=== PATIENT | female | born 1965 ===

== ENCOUNTER 2019-12-24 15:24 | Emergency (ER) | payer MEDICAID ==
[2019-12-24 15:58] LABS: CHLORIDE,CL 102 mmol/L (98-107); SODIUM,NA 139 mmol/L (136-145)
--- NOTE | 2019-12-24 16:09 | EDM.PDOC ---
ED HPI GENERAL MEDICAL PROBLEM - General Chief Complaint: Chest Pain Stated Complaint: CHEST PAIN Time Seen by Provider: 12/24/19 15:26 Source of Information: Reports: Patient History Limitations: Reports: Language Barrier - History of Present Illness INITIAL COMMENTS - FREE TEXT/NARRATIVE: Pt with pressure in chest Began yesterday after running No SOB No fever No cough Pt states doesnt feel right Just started Metformin 2 days ago Had been on it previously and was stopped due to side effects Side effects were similar to this Has been on different oral agent and was tolerating it Onset: Gradual Duration: Day(s):, Intermittent Location: Reports: Chest, Generalized Severity: Mild - Related Data Allergies Allergy/AdvReac Type Severity Reaction Status Date / Time Penicillins Allergy Severe Facial Verified 12/24/19 15:29 Swelling Home Meds: Home Meds Omeprazole Magnesium [Prilosec Otc] 20 mg PO DAILY PRN 12/24/19 [History] atenoloL [Atenolol] 25 mg PO DAILY@1200 12/24/19 [History] metFORMIN HCl [Metformin HCl] 500 mg PO DAILY@1130 12/24/19 [History] Social & Family History - Tobacco Use Smoking Status *Q: Never Smoker Second Hand Smoke Exposure: No - Caffeine Use Caffeine Use: Reports: Tea - Recreational Drug Use Recreational Drug Use: No ED ROS GENERAL - Review of Systems Review Of Systems: See Below HEENT: Reports: No Symptoms Respiratory: Reports: No Symptoms Cardiovascular: Reports: Chest Pain GI/Abdominal: Reports: Abdominal Pain : Reports: No Symptoms Musculoskeletal: Reports: No Symptoms Skin: Reports: No Symptoms Neurological: Reports: No Symptoms Psychiatric: Reports: No Symptoms ED EXAM, GENERAL - Physical Exam Exam: See Below Exam Limited By: No Limitations General Appearance: No Apparent Distress Throat/Mouth: Normal Inspection Neck: Supple Respiratory/Chest: Lungs Clear Cardiovascular: Regular Rate, Rhythm GI/Abdominal: Soft, Non-Tender Extremities: Normal Inspection Neurological: Alert, Oriented, No Motor/Sensory Deficits Psychiatric: Normal Affect, Normal Mood Skin Exam: Warm, Dry EKG INTERPRETATION Rhythm: NSR Course - Vital Signs Last Recorded V/S: Last Vital Signs Temp 98.3 F 12/24/19 15:27 Pulse 67 12/24/19 15:27 Resp 18 12/24/19 15:27 BP 117/67 12/24/19 15:27 Pulse Ox 99 12/24/19 15:27 - Orders/Labs/Meds Orders: Active Orders 24 hr Category Date Time Status EKG Documentation Completion [RC] ASDIRECTED Care 12/24/19 15:27 Active Chest 1V Frontal [CR] Stat Exams 12/24/19 15:27 Taken Labs: Laboratory Tests 12/24/19 12/24/19 12/24/19 Range/Units 15:24 15:24 15:24 WBC 9.0 (4.0-10.2) K/uL RBC 4.72 (4.33-5.41) M/uL Hgb 13.9 (13.1-16.8) g/dL Hct 40.6 (39.0-49.0) % MCV 86.0 (84.0-98.0) fL MCH 29.4 (28.2-33.3) pg MCHC 34.2 (31.7-36.0) g/dL RDW 12.3 (11.2-14.1) % Plt Count 283 (150-350) K/uL Neut % (Auto) 55.9 (45.0-80.0) % Lymph % (Auto) 36.3 (10.0-50.0) % Smyth % (Auto) 6.5 (2.0-14.0) % Eos % (Auto) 1.1 (0.0-5.0) % Baso % (Auto) 0.2 (0.0-2.0) % Neut # (Auto) 5.00 (1.40-7.00) K/uL Lymph # (Auto) 3.25 (0.50-3.50) K/uL Smyth # (Auto) 0.58 (0.00-1.00) K/uL Eos # (Auto) 0.10 (0.00-0.50) K/uL Baso # (Auto) 0.02 (0.00-0.20) K/uL D-Dimer, Quantitative < 100 (0-400) ng/mL Sodium 139 (136-145) mmol/L Potassium 4.2 (3.5-5.1) mmol/L Chloride 102 (98-107) mmol/L Carbon Dioxide 27.1 (21.0-32.0) mmol/L BUN 13 (7-18) mg/dL Creatinine 0.65 (0.51-1.17) mg/dL Est Cr Clr Drug Dosing 96.39 mL/min Estimated GFR (MDRD) > 60 mL/min Glucose 198 H (74-106) mg/dL Calcium 9.8 (8.5-10.1) mg/dL Total Bilirubin 0.4 (0.2-1.0) mg/dL AST 15 (15-37) U/L ALT 23 (12-78) U/L Alkaline Phosphatase 113 (46-116) IU/L Troponin I 0.000 (0.000-0.056) ng/mL Total Protein 8.2 (6.4-8.2) g/dL Albumin 4.2 (3.4-5.0) g/dL - Re-Assessments/Exams Free Text/Narrative Re-Assessment/Exam: 12/24/19 16:07 See lab and CXR No acute findings Departure - Departure Time of Disposition: 16:15 Disposition: Home, Self-Care 01 Clinical Impression: Atypical chest pain Instructions: Nonspecific Chest Pain, Adult, [id number] Referrals: PCP,None [Primary Care Provider] - Additional Instructions: Stop Metformin and resume previous medication Follow up in clinic Sepsis Event Note (ED) - Evaluation Sepsis Screening Result: No Definite Risk - Focused Exam Vital Signs: Vital Signs Temp Pulse Resp BP Pulse Ox 12/24/19 15:27 98.3 F 67 18 117/67 99 - My Orders Last 24 Hours: My Active Orders 12/24/19 15:27 EKG Documentation Completion [RC] ASDIRECTED Chest 1V Frontal [CR] Stat - Assessment/Plan Last 24 Hours: My Active Orders 12/24/19 15:27 EKG Documentation Completion [RC] ASDIRECTED Chest 1V Frontal [CR] Stat
== END 2019-12-24 16:45 | disposition home or self-care (01) ==
LOC: LL.ED 15:24 → EDSEX 15:24 → LL.ED 16:45
DX: R07.89 Other chest pain (principal); Z88.0 Allergy status to penicillin; Z79.899 Other long term (current) drug therapy
CPT/HCPCS: 36415; 71045; 80053; 84484; 85025; 85379; 93005; 99285-25

== ENCOUNTER 2020-02-05 15:53 | Emergency (ER) | payer MEDICAID ==
[2020-02-05] MEDS ORDERED: Ketorolac 30 MG/ML SDV IM ONE (17:18)
[2020-02-05] MEDS ORDERED: Ondansetron 4 MG Tab.DIS PO ONE (17:23)
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
== END 2020-02-05 17:45 | disposition home or self-care (01) ==
LOC: LL.ED 15:53
DX: R51 Headache (principal); I10 Essential (primary) hypertension; K21.9 Gastro-esophageal reflux disease without esophagitis; E11.9 Type 2 diabetes mellitus without complications; Z90.49 Acquired absence of other specified parts of digestive tract; Z88.0 Allergy status to penicillin; Z79.899 Other long term (current) drug therapy
CPT/HCPCS: 36415; 70450; 85025; 85652; 86140; 96372; 99283; 99284-25; A9270-GY; J1885

== ENCOUNTER 2020-06-15 18:08 | Emergency (ER) | payer MEDICAID ==
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
[2020-06-15 18:50] LABS: CHLORIDE,CL 100 mmol/L (98-107); SODIUM,NA 137 mmol/L (136-145)
[2020-06-15] MEDS ORDERED: Magnesium Oxide 400 MG Tab PO ONE (19:02)
== END 2020-06-15 20:20 | disposition home or self-care (01) ==
LOC: LL.ED 18:08
DX: B34.9 Viral infection, unspecified (principal); I10 Essential (primary) hypertension; E11.9 Type 2 diabetes mellitus without complications; Z79.899 Other long term (current) drug therapy; Z88.0 Allergy status to penicillin; Z79.84 Long term (current) use of oral hypoglycemic drugs
CPT/HCPCS: 36415; 71045; 80053; 83605; 83735; 83880; 84484; 85025; 85379; 87804; 93005; 99285-25; A9270-GY; U0002

== ENCOUNTER 2022-11-12 18:27 | Emergency (ER) | payer MEDICAID ==
[2022-11-12] MEDS ORDERED: BETAMETHASONE TOP ONE (19:01)
[2022-11-12] MEDS ORDERED: [UNRECOGNIZED DRUG - OTHER] TOP ONE (19:01)
== END 2022-11-12 19:15 | disposition home or self-care (01) ==
LOC: LL.ED 18:27
DX: B35.4 Tinea corporis (principal); I10 Essential (primary) hypertension; E11.9 Type 2 diabetes mellitus without complications; Z88.0 Allergy status to penicillin; Z79.899 Other long term (current) drug therapy; Z79.84 Long term (current) use of oral hypoglycemic drugs
CPT/HCPCS: 99283; A9270-GY